=== PATIENT | male | born 2000 | race Caucasian/White ===

== ENCOUNTER 2024-08-01 09:18 | Inpatient (IN) | payer MEDICAID ==
[~2024-08-01] VITALS: Ht 190.5 cm; Wt 81.8 kg
[2024-08-01 09:47] LABS: EOSINOPHILS # (AUTO) 0.2 X10'3 (0-0.9); EOSINOPHILS % (AUTO) 5.5 % (0-6); HEMATOCRIT 40.7 % (42.0-52.0); LYMPHOCYTES # (AUTO) 1.1 X10'3 (1.1-4.8); LYMPHOCYTES % (AUTO) 24.7 % (21-51); MEAN CORPUSCULAR HEMOGLOBIN 31.4 PG (27.0-31.0); MEAN CORPUSCULAR HGB CONC 34.4 g/dL (33.0-36.5); MEAN CORPUSCULAR VOLUME 91.1 FL (78-98); MEAN PLATELET VOLUME 8.1 FL (7.4-10.4); MONOCYTES # (AUTO) 0.8 X10'3 (0-0.9); MONOCYTES % (AUTO) 17.3 % (2-12); NEUTROPHILS # (AUTO) 2.3 X10'3 (1.8-7.7); NEUTROPHILS % (AUTO) 51.5 % (42-75); PLATELET COUNT 193 X10'3 (140-440); RED BLOOD COUNT 4.47 X10'6 (4.70-6.10); RED CELL DISTRIBUTION WIDTH 12.9 % (11.5-14.5); WHITE BLOOD COUNT 4.5 X10'3 (4.5-11.0)
[2024-08-01 10:15] LABS: PLATELET ESTIMATE NORMAL; TOTAL CELLS COUNTED 100
[2024-08-01 10:21] LABS: BLOOD UREA NITROGEN 18 MG/DL (7-18); BUN/CREATININE RATIO 16.1 (10.0-20.0); CHLORIDE 105 MMOL/L (99-107); CREATININE 1.12 MG/DL (0.60-1.10); GLUCOSE 99 MG/DL (70-104); POTASSIUM 3.5 MMOL/L (3.5-5.1); SODIUM 139 MMOL/L (135-145); eCRCL 110 ML/MIN; eGFR 79 ML/MIN
[2024-08-01 10:22] LABS: ANION GAP 6 (8-16); CALCIUM 8.8 MG/DL (8.5-10.1); SALICYLATE 0.7 MG/DL (4.0-20.0); THYROID STIMULATING HORMONE 0.52 ulU/ml (0.34-4.50); TOTAL CARBON DIOXIDE 28.4 MMOL/L (24-32)
[2024-08-01 10:52] LABS: ACETAMINOPHEN < 2.0 UG/ML (10-30); ETHANOL < 10 MG/DL (<10)
[2024-08-01 11:07] LABS: BILIRUBIN,URINE SMALL (Neg); CLARITY,URINE CLEAR (Clear); COLOR,URINE YELLOW (Yellow); GLUCOSE, URINE NEGATIVE (Neg); KETONES,URINE TRACE mg/dl (Neg); LEUKOCYTE ESTERASE ,URINE NEGATIVE (Neg); NITRITES, URINE NEGATIVE (Neg); OCCULT BLOOD,URINE TRACE-INTACT (Neg); PROTEIN,URINE TRACE mg/dl (Neg)
[2024-08-01 11:08] LABS: UA COLLECTION TYPE STRAIGHT CATH
[2024-08-01 11:14] LABS: BACTERIA,URINE FEW /HPF (Neg); MUCUS STRANDS FEW /LPF (Neg); SQUAMOUS EPITHELIAL CELL,UR FEW /LPF (FEW); WBC,URINE 0-4 /HPF (0-4)
[2024-08-01 11:15] LABS: HYALINE CASTS 0-3 /LPF (NEGATIVE); SPERM FEW /HPF (NEGATIVE)
[2024-08-01 11:23] LABS: URINE AMPHETAMINE SCREEN POSITIVE (Neg); URINE BARBITUATE SCREEN NEGATIVE (Neg); URINE BENZODIAZEPINES SCREEN POSITIVE (Neg); URINE CANNABINOID SCREEN POSITIVE (Neg); URINE COCAINE SCREEN NEGATIVE (Neg); URINE METHADONE SCREEN NEGATIVE (Neg); URINE OPIATE SCREEN NEGATIVE (Neg); URINE PHENCYCLIDINE SCREEN NEGATIVE (Neg)
[2024-08-02] MEDS ORDERED: NO HOME MEDS (07:45)
[2024-08-02] MEDS ORDERED: magnesium hydroxide 30ml (MOM) UD suspension PO PRN (15:05)
[2024-08-02] MEDS ORDERED: loperamide 2mg capsule PO PRN (15:05)
[2024-08-02] MEDS ORDERED: mag hydrox/Alum hydrox/simeth 30ml oral suspension PO PRN (15:05)
[2024-08-02] MEDS ORDERED: acetaminophen 325mg tablet PO PRN (15:05)
[2024-08-02 20:00] VITALS: BP 105/60; PULSE 64; RESP 16; TEMP 98.2; O2SAT 98
[2024-08-02] MEDS: NICOTINE POLACRILEX 2 MG LOZENGE BC PRN (20:54)
[2024-08-03 07:20] VITALS: BP 100/64; PULSE 66; RESP 14; TEMP 97.7; O2SAT 98
[2024-08-03 07:32] LABS: HEMOGLOBIN A1C 5.2 % (4.5-6.2)
[2024-08-03 07:34] LABS: CHOL/HDL RATIO 2.2 (0.00-4.99); CHOLESTEROL 128 MG/DL (0-200); HDL CHOLESTEROL 59 MG/DL (35-60); LDL CHOLESTEROL 55 MG/DL (50-100); TRIGLYCERIDES 73 MG/DL (20-135)
[2024-08-03] MEDS: acetaminophen 325mg tablet PO PRN (08:49)
[2024-08-03] MEDS: nicotine 21mg patch - 24 hr TD SCH (08:51)
[2024-08-03 08:52] VITALS: RESP 14; O2SAT 98
[2024-08-03] MEDS: hydrOXYzine 25 MG tablet PO PRN (15:39)
[2024-08-03 19:00] VITALS: RESP 18; O2SAT 100
[2024-08-03 20:00] VITALS: BP 131/69; PULSE 71; RESP 18; TEMP 98.2; O2SAT 100
[2024-08-03] MEDS: traZODone 50mg tablet PO SCH (20:09)
[2024-08-03] MEDS: buPROPion SR 100mg tab PO SCH (20:09)
[2024-08-03 21:26] LABS: HIV ANTIBODY 1&2 RAPID NON-REACTIVE (Neg)
[2024-08-04 07:00] VITALS: RESP 18; O2SAT 99
[2024-08-04 08:00] VITALS: BP 112/69; PULSE 68; RESP 18; TEMP 97.9; O2SAT 99
[2024-08-04] MEDS: cefdinir 300mg capsule PO SCH (08:38)
[2024-08-04 19:00] VITALS: RESP 17; O2SAT 97
[2024-08-04] MEDS ORDERED: sulfamethoxazole/trimethoprim SS (400mg/80mg) tab (single-strength) PO SCH (19:00)
[2024-08-04 20:00] VITALS: BP 137/83; PULSE 80; RESP 17; TEMP 97.9; O2SAT 97
[2024-08-05 07:30] VITALS: BP 109/66; PULSE 77; RESP 14; TEMP 97.5; O2SAT 98
[2024-08-05] MEDS: divalproex 250mg tablet, delayed-release PO SCH (11:59)
[2024-08-05 19:00] VITALS: RESP 18
[2024-08-05 20:00] VITALS: BP 109/70; PULSE 64; RESP 20; TEMP 98.5; O2SAT 98
[2024-08-05] MEDS ORDERED: buPROPion SR 100mg tab PO SCH (20:00)
[2024-08-05] MEDS: buPROPion SR 150mg tablet PO SCH (20:42)
[2024-08-06 07:00] VITALS: BP 116/57; PULSE 88; RESP 12; TEMP 98.1; O2SAT 96
[2024-08-06] MEDS ORDERED: BUPR-72 PO (10:53)
[2024-08-06] MEDS ORDERED: CEFD300C3 PO (10:53)
[2024-08-06] MEDS ORDERED: HYDR-3686 PO (10:53)
[2024-08-06] MEDS ORDERED: DIVA125C10 PO (10:53)
[2024-08-06] MEDS ORDERED: TRAZ-251 PO (10:53)
[2024-08-06 11:09] LABS: CHLAMYDIA TRACHOMATIS, NAA Negative (Negative)
== END 2024-08-06 12:21 | disposition home or self-care (01) | DRG 754 ==
LOC: ER 09:18 → ADULT MH 08-02 12:36 → UNDOADMIN 08-02 12:36 → ADULT MH 08-02 14:58
PROVIDERS: ADMIT Psychiatry & Neurology Psychiatry; ATTEND Psychiatry & Neurology Psychiatry
PROC: GZHZZZZ Group Psychotherapy (ICD-10-PCS; principal; 2024-08-03)
PROC: GZ51ZZZ Individual Psychotherapy, Behavioral (ICD-10-PCS; 2024-08-03)
DX: F32.A Depression, unspecified (principal); R45.851 Suicidal ideations; F15.159 Other stimulant abuse with stimulant-induced psychotic disorder, unspecified; T42.4X2A Poisoning by benzodiazepines, intentional self-harm, initial encounter; F90.9 Attention-deficit hyperactivity disorder, unspecified type; F17.290 Nicotine dependence, other tobacco product, uncomplicated; Z20.822 Contact with and (suspected) exposure to COVID-19; F41.9 Anxiety disorder, unspecified; G47.00 Insomnia, unspecified; Z91.51 Personal history of suicidal behavior; Z88.2 Allergy status to sulfonamides; Z79.899 Other long term (current) drug therapy; Y92.89 Other specified places as the place of occurrence of the external cause
CPT/HCPCS: 36415; 80048; 80061; 80305; 80320; 80329; 81001; 83036; 84443; 85007; 85025; 86592; 86703; 87081; 87088; 87491; 87811; 93005; 99285; C1758; J7030; Q0177

== ENCOUNTER 2024-12-26 20:51 | Emergency (ER) | payer MEDICAID ==
[~2024-12-26] VITALS: Ht 190.5 cm; Wt 87.5 kg
[~2024-12-26 20:51] MED LIST: BUPR-72 PO; CEFD300C3 PO; DIVA125C10 PO; HYDR-3686 PO; TRAZ-251 PO
[2024-12-26 21:07] VITALS: BP 134/82; PULSE 83; RESP 16; O2SAT 99
[2024-12-26 23:49] VITALS: TEMP 98.6
== END 2024-12-26 23:49 | disposition left against medical advice (07) ==
LOC: ER 20:52
DX: Z00.8 Encounter for other general examination (principal); Z88.2 Allergy status to sulfonamides; Z88.8 Allergy status to other drugs, medicaments and biological substances; Z53.21 Procedure and treatment not carried out due to patient leaving prior to being seen by health care provider